=== PATIENT | male | born 1995 | race Caucasian/White ===

== ENCOUNTER 2017-01-02 10:30 | Emergency (ER) | payer MEDICAID ==
[~2017-01-02] VITALS: Ht 152.4 cm; Wt 63.0 kg
[2017-01-02] MEDS ORDERED: ONDANSETRON HCL 4MG/2ML VIAL IV STA (11:02)
[2017-01-02] MEDS ORDERED: MORPHINE SULFATE 4 MG/ML CPJ (NOT FOR IM USE) IV STA (11:02)
[2017-01-02 12:45] VITALS: BP 111/69
== END 2017-01-02 12:53 | disposition home or self-care (01) ==
LOC: ER 10:30
DX: S93.402A Sprain of unspecified ligament of left ankle, initial encounter (principal); S93.602A Unspecified sprain of left foot, initial encounter; X50.1XXA Overexertion from prolonged static or awkward postures, initial encounter; Y93.89 Activity, other specified; Y92.488 Other paved roadways as the place of occurrence of the external cause
CPT/HCPCS: 29515; 73610; 73630; 96374; 96375; 99284; J2270; J2405; Z7610